=== PATIENT | male | born 1940 | race Caucasian/White ===

== ENCOUNTER → 2017-11-12 | Outpatient (CLI) | payer OTHER ==
--- NOTE | 2017-11-12 16:07 | RADRPT ---
EXAM DATE: 11/12/2017 3:54 PM EDT AGE/SEX: 77 years / Male INDICATIONS: Abnormal gait. CLINICAL DATA: This is the patient's initial encounter. Patient reports that signs and symptoms have been present for 7 - 11 months and indicates a pain score of 3/10. MEDICAL/SURGICAL HISTORY: Cardiovascular disease. CABG. COMPARISON: No prior exams available for comparison. DOSE: 5.2 mCi Roflurane Iodine-123 in 2.5ml total volume. MEDICATION(S): 130 mg Potasium Iodine PO one hour prior to injection. IMAGING: Spec t/CT imaging with fusion was performed. SPECT IMAGIN hr30 min RADIATION DOSE: 30.27 CTDI vol(mGy) TECHNIQUE: SPECT imaging of the brain was performed in sagittal, axial and coronal planes. Attenuati on correction was performed with computed tomography and both the attenuation correction and non-atte nuation corrected data sets were reviewed. FINDINGS: Grade 2 uptake on the left only the head of the caudate. Normal-appearing uptake on the right. CONCLUSION: 1. Positive ERIK scan, grade 2 Electronically signed by: Elvin Brown MD 11/12/2017 3:58 PM EDT
== END ==
LOC: HRAD 09:23
PROVIDERS: ATTEND Specialist
DX: G20 Parkinson's disease (principal)
CPT/HCPCS: 78607; A9584